=== PATIENT | female | born 1990 | race American Indian/Alaskan Native ===

== ENCOUNTER 2018-11-27 06:09 | Day surgery (SDC) | payer MEDICAID ==
[2018-11-27] MEDS ORDERED: NACL 0.9% 1000 ML 1,000 ML IV SCH (07:00)
[2018-11-27] MEDS ORDERED: WATER FOR IRRIG STERILE IR ONE (07:26)
[2018-11-27] MEDS ORDERED: XYLOCAINE 2% INFILTRATI ONE (07:33)
[2018-11-27] MEDS ORDERED: DIPRIVAN 10 MG/ML IV ONE ×2 (07:33)
[2018-11-27] MEDS ORDERED: NEO SYNEPHRINE/NS Syringe(OR USE) IV ONE (07:34)
--- NOTE | 2018-11-27 07:44 | Anesthesia Consultation ---
Anesthesia Consult and Med Hx Date of service: 11/27/18 - Airway Anesthetic Teeth Evaluation: Good ROM Head & Neck: Adequate Mental/Hyoid Distance: Adequate Mallampati Class: Class II Intubation Access Assessment: Possibly Difficult - Pulmonary Exam CTA: Yes - Cardiac Exam Cardiac Exam: RRR - Pre-Operative Health Status ASA Pre-Surgery Classification: ASA3 Proposed Anesthetic Plan: MAC - Pulmonary Hx Smoking: Yes (Quit 2 months ago ) Hx Asthma: Yes (last inhaler use >3m) SOB: Yes Hx Sleep Apnea: Yes (Cpap) - Central Nervous System Hx Psychiatric Problems: Yes (Schizophrenia, Bipolar ) - Gastrointestinal Hx Gastroesophageal Reflux Disease: Yes - Other Systems Hx Substance Use: Yes (marijuana) Hx Obesity: Yes (BMI 66)
--- NOTE | 2018-11-27 07:45 | Anesthesia Day of Surgery ---
Anesthesia Day of Surgery - Day of Surgery Patient Examined: Yes Patient H&P Reviewed: Yes Patient is NPO: Yes
[2018-11-27 08:57] VITALS: BP 144/90
--- NOTE | 2018-11-27 09:08 | Operative Report ---
PREOPERATIVE DIAGNOSIS: Morbid obesity. POSTOPERATIVE DIAGNOSIS: Small hiatal hernia less than 2 cm. PROCEDURE: EGD. COMPLICATIONS: None. SPECIMENS: None. BLEEDING: None. INDICATIONS: The patient is a 28-year-old female with a history of morbid obesity. She is here for a preoperative EGD. Informed consent was obtained. DESCRIPTION OF PROCEDURE: The patient was brought to the GI suite where she was placed in the left lateral decubitus position, underwent MAC anesthesia. Bite block was placed and a timeout was called. A standard adult gastroscope was inserted into the oropharynx, down the esophagus, into the stomach and first portion of the duodenum. On retroflexion view, she was noted to have a small hiatal hernia measuring less than 2 cm. There were no other abnormalities or lesions. With this, the air was desufflated. The scope was removed and the patient tolerated the procedure with no issues and was transferred to the PACU in stable condition. JOB# [id number]/[email or web address]
== END 2018-11-27 06:10 | disposition home or self-care (01) ==
LOC: GIO 06:09
PROVIDERS: ATTEND Specialist
DX: K30 Functional dyspepsia (principal); E66.01 Morbid (severe) obesity due to excess calories; K44.9 Diaphragmatic hernia without obstruction or gangrene; F17.210 Nicotine dependence, cigarettes, uncomplicated; J45.909 Unspecified asthma, uncomplicated; G47.30 Sleep apnea, unspecified; K21.9 Gastro-esophageal reflux disease without esophagitis; F31.9 Bipolar disorder, unspecified; F41.9 Anxiety disorder, unspecified; Z79.899 Other long term (current) drug therapy; Z68.44 Body mass index [BMI] 60.0-69.9, adult; Z88.0 Allergy status to penicillin
CPT/HCPCS: 43235; 81025; J2370; J2704; J7030

== ENCOUNTER 2019-04-02 07:07 | Inpatient (IN) | payer MEDICAID ==
[2019-03-29 13:59] LABS: Basophils % (Auto) 0.6 % (0.0-1.8); Eosinophils # (Auto) 0.2 K/mm3 (0.0-0.4); Eosinophils % (Auto) 3.1 % (0.0-4.3); Hematocrit 36.7 % (30.3-42.9); Hemoglobin 12.4 gm/dl (10.1-14.3); Lymphocytes # (Auto) 2.3 K/mm3 (1.2-5.4); Lymphocytes % (Auto) 37.3 % (13.4-35.0); Mean Corpuscular HGB Conc 34 % (30-34); Mean Corpuscular Volume 86 fl (79-97); Monocytes # (Auto) 0.5 K/mm3 (0.0-0.8); Monocytes % (Auto) 8.8 % (0.0-7.3); Platelet Count 273 K/mm3 (140-440); Red Blood Count 4.28 M/mm3 (3.65-5.03); Red Cell Distribution Width 14.1 % (13.2-15.2)
--- NOTE | 2019-03-29 14:00 | Anesthesia Consultation ---
Anesthesia Consult and Med Hx Date of service: 04/02/19 - Airway Anesthetic Teeth Evaluation: Good ROM Head & Neck: Adequate Mental/Hyoid Distance: Adequate Mallampati Class: Class II Intubation Access Assessment: Good - Pre-Operative Health Status ASA Pre-Surgery Classification: ASA3 Proposed Anesthetic Plan: General - Pulmonary Hx Smoking: Yes (Quit 5 mos ago) Hx Asthma: Yes (Last used inhaler 2 weeks ago) SOB: Yes Hx Sleep Apnea: Yes (Pulmonary clearance) - Cardiovascular System Hx Hypertension: No (+Cardiac clearance) - Central Nervous System Hx Psychiatric Problems: Yes (Bipolar/Anxiety/Depression/Schizophrenia) - Gastrointestinal Hx Gastroesophageal Reflux Disease: Yes - Hematic Hx Sickle Cell Disease: No - Other Systems Hx Substance Use: Yes (Occas marijuana use) Hx Cancer: No Hx Obesity: Yes
[2019-03-29 14:13] LABS: Alanine Aminotransferase 13 units/L (7-56); BUN/Creatinine Ratio 16; Blood Urea Nitrogen 13 mg/dL (7-17); Calcium 9.5 mg/dL (8.4-10.2); Chol/HDL Ratio 5.57 %; HDL Cholesterol 28 mg/dL (40-59); Hemolysis Index 14; LDL Cholesterol,Direct 101 mg/dL (50-130)
[~2019-04-02 07:07] MED LIST: ANCEF/STERILE WATER 2 GM/20 ML 2 GM/20 ML SYRINGE IV NR
[2019-04-02] MEDS ORDERED: NACL BACTERIOSTATIC INFILTRATI ONE (07:19)
[2019-04-02] MEDS ORDERED: FLAGYL 500 MG/100 ML 500 MG/100 ML BAG IV NR (07:30)
[2019-04-02] MEDS ORDERED: LOVENOX SUB-Q NR (07:30)
[2019-04-02] MEDS ORDERED: TRANSDERM-SCOP TD SCH (07:30)
[2019-04-02] MEDS ORDERED: REGLAN IV PRN (07:30)
[2019-04-02] MEDS ORDERED: ZOFRAN IV PRN (07:30)
--- NOTE | 2019-04-02 07:42 | Anesthesia Day of Surgery ---
Anesthesia Day of Surgery - Day of Surgery Patient Examined: Yes Patient H&P Reviewed: Yes Patient is NPO: Yes
[2019-04-02] MEDS: LACTATED RINGERS 1,000 ML IV SCH ×2 (07:55→20:19)
[2019-04-02 07:59] LABS: Bilirubin,Urine NEG (Negative); Blood,Urine SM (Negative); Color,Urine Yellow (Yellow); Mucus,Urine FEW /HPF; Protein,Urine <15 mg/dL mg/dL (Negative); Urobilinogen,Urine < 2.0 mg/dL (<2.0)
[2019-04-02] MEDS ORDERED: LEVAQUIN 500MG/100ML 500 MG/100 ML BAG IV NR (08:00)
[2019-04-02] MEDS ORDERED: VERSED IV NR (08:00)
[2019-04-02] MEDS ORDERED: APRESOLINE IV PRN (08:00)
[2019-04-02] MEDS ORDERED: SUBLIMAZE ONE ×4 (09:32→11:06)
[2019-04-02] MEDS ORDERED: DIPRIVAN 10 MG/ML IV ONE ×2 (09:33→10:16)
[2019-04-02] MEDS ORDERED: ROBINUL ONE (09:35)
[2019-04-02] MEDS ORDERED: XYLOCAINE MPF 2% ONE (09:35)
[2019-04-02] MEDS ORDERED: ZEMURON IV ONE (09:35)
[2019-04-02] MEDS ORDERED: BLOXIVERZ ONE (09:35)
[2019-04-02] MEDS ORDERED: DECADRON ONE (09:35)
[2019-04-02] MEDS ORDERED: ZOFRAN ONE (09:35)
[2019-04-02] MEDS ORDERED: MARCAINE-EPI 0.5%-1:200,000 INFILTRATI ONE ×2 (09:51→10:49)
[2019-04-02] MEDS ORDERED: XYLOCAINE 1% 20 mL ONE (09:51)
[2019-04-02] MEDS ORDERED: XYLOCAINE 1% 20 mL INFILTRATI ONE (10:49)
[2019-04-02] MEDS ORDERED: NACL 0.9% IR ONE ×2 (10:50)
[2019-04-02] MEDS: TORADOL IV SCH ×3 (12:10→20:19)
[2019-04-02] MEDS: DILAUDID IV PRN ×5 (14:30→22:07)
[2019-04-02] MEDS: MYLICON PO PRN (14:34)
--- NOTE | 2019-04-02 16:07 | Post Anesthesia Evaluation ---
- Post Anesthesia Evaluation Patient Participated: Yes Airway Patent: Yes Stable Respiratory Function: Yes Nausea/Vomiting: No Temp > 96.8F: Yes Pain Manageable: Yes Adequeate Hydration: Yes Anesthesia Complications: No Block Receding Appropriately: Not Applicable Patient on Ventilator: No
[2019-04-02 16:41] LABS: Basophils % (Auto) 0.1 % (0.0-1.8); Hematocrit 36.6 % (30.3-42.9); Hemoglobin 12.3 gm/dl (10.1-14.3); Lymphocytes # (Auto) 0.9 K/mm3 (1.2-5.4); Lymphocytes % (Auto) 8.3 % (13.4-35.0); Mean Corpuscular HGB Conc 34 % (30-34); Mean Corpuscular Volume 87 fl (79-97); Monocytes # (Auto) 0.2 K/mm3 (0.0-0.8); Monocytes % (Auto) 2.4 % (0.0-7.3); Platelet Count 260 K/mm3 (140-440); Red Cell Distribution Width 14.1 % (13.2-15.2)
[2019-04-02 17:00] LABS: Alanine Aminotransferase 17 units/L (7-56); Albumin 3.8 g/dL (3.9-5); BUN/Creatinine Ratio 14; Blood Urea Nitrogen 10 mg/dL (7-17); Calcium 9.1 mg/dL (8.4-10.2); Hemolysis Index 2
[2019-04-03] MEDS: DILAUDID IV PRN ×3 (01:26→07:39)
[2019-04-03] MEDS: TORADOL IV SCH ×3 (02:54→14:35)
[2019-04-03] MEDS: LACTATED RINGERS 1,000 ML IV SCH (02:58)
[2019-04-03 07:58] VITALS: BP 143/88
[2019-04-03] MEDS: MYLICON PO PRN (08:43)
[2019-04-03] MEDS ORDERED: LOVENOX SUB-Q SCH (10:00)
[2019-04-03 11:34] LABS: Basophils % (Auto) 0.1 % (0.0-1.8); Hematocrit 34.2 % (30.3-42.9); Hemoglobin 11.3 gm/dl (10.1-14.3); Mean Corpuscular HGB Conc 33 % (30-34); Mean Corpuscular Volume 87 fl (79-97); Monocytes # (Auto) 1.1 K/mm3 (0.0-0.8); Monocytes % (Auto) 8.7 % (0.0-7.3); Platelet Count 247 K/mm3 (140-440); Red Blood Count 3.94 M/mm3 (3.65-5.03); Red Cell Distribution Width 14.1 % (13.2-15.2)
[2019-04-03 11:52] LABS: Alanine Aminotransferase 15 units/L (7-56); Albumin 3.7 g/dL (3.9-5); BUN/Creatinine Ratio 13; Blood Urea Nitrogen 10 mg/dL (7-17); Calcium 9.6 mg/dL (8.4-10.2); Hemolysis Index 11
--- NOTE | 2019-04-03 12:56 | Discharge Summary ---
Providers - Providers Date of Admission: 04/02/19 07:07 Date of discharge: 04/03/19 Attending physician: ALEX FLORES 04/01/19 22:04 Physical Therapy Evaluation and Treat [CONS] Routine Comment: Reason For Exam: Ambulation Primary care physician: [employer]ER [employer]MENT [employer]TER Hospitalization Condition: Good Procedures: Lap Bypass Disposition: DC-01 TO HOME OR SELFCARE Core Measure Documentation - Palliative Care Palliative Care/ Comfort Measures: Not Applicable - Core Measures Any of the following diagnoses?: none Exam - Constitutional Vitals: Temp Pulse Resp BP Pulse Ox 98.0 F 68 20 143/88 95 04/03/19 07:01 04/03/19 07:01 04/03/19 07:01 04/03/19 07:01 04/03/19 07:01 Plan Follow up with: PRIMARY MD CHIRAG [Primary Care Provider] - 7 Days
== END 2019-04-03 15:40 | disposition home or self-care (01) | DRG 620 ==
LOC: 3A 07:07 → 3B-SURG 15:04
PROVIDERS: ADMIT Specialist; ATTEND Specialist
PROC: 0D164ZA Bypass Stomach to Jejunum, Percutaneous Endoscopic Approach (ICD-10-PCS; principal; 2019-04-02)
DX: E66.01 Morbid (severe) obesity due to excess calories (principal); F31.30 Bipolar disorder, current episode depressed, mild or moderate severity, unspecified; F20.81 Schizophreniform disorder; G47.30 Sleep apnea, unspecified; K30 Functional dyspepsia; F41.9 Anxiety disorder, unspecified; J45.909 Unspecified asthma, uncomplicated; Z68.44 Body mass index [BMI] 60.0-69.9, adult; Z83.42 Family history of familial hypercholesterolemia; Z84.89 Family history of other specified conditions; Z79.899 Other long term (current) drug therapy; Z87.891 Personal history of nicotine dependence
CPT/HCPCS: 36415; 80053; 80061; 81001; 83036; 84443; 84703; 85025; G0378; A4217; J1100; J1170; J1650; J1885; J1956; J2250; J2405; J2704; J2710; J3010; J7120